=== PATIENT | male | born 1960 | race Caucasian/White ===

== ENCOUNTER → 2017-03-22 | Outpatient (CLI) | payer OTHER ==
[~2017-03-22] MED LIST: IBUP200C PO
[2017-03-22 10:56] LABS: PATH.CAST-FLAG NOT PRESENT; SPERM-FLAG NOT PRESENT; SRC-FLAG NOT PRESENT; XTAL-FLAG NOT PRESENT; YLC-FLAG NOT PRESENT
[2017-03-22 11:05] LABS: BLOOD UREA NITROGEN 18 mg/dL (7-18)
== END | disposition home or self-care (01) ==
LOC: STAR 09:58
PROVIDERS: ATTEND Urology
DX: Z01.818 Encounter for other preprocedural examination (principal); N20.1 Calculus of ureter; R79.1 Abnormal coagulation profile
CPT/HCPCS: 36415; 80048; 81001; 85025; 85610; 85730; 87077; 87086; 87186; 93005

== ENCOUNTER 2017-03-27 07:28 | Day surgery (SDC) | payer OTHER ==
[~2017-03-27] VITALS: Ht 175.3 cm; Wt 62.0 kg
[2017-03-27] MEDS ORDERED: LACTATED RINGERS 1,000 ML IV SCH (08:06)
[2017-03-27 08:07] VITALS: BP 139/88
[2017-03-27] MEDS ORDERED: FENTANYL PF 100 MCG/2ML ONE ×2 (08:57→12:27)
[2017-03-27] MEDS ORDERED: ROCURONIUM 10 MG/ML ONE (09:50)
[2017-03-27] MEDS ORDERED: CEFAZOLIN 1,000 MG ONE (09:50)
[2017-03-27] MEDS ORDERED: PROPOFOL 10 MG/ML, 20ML ONE (09:50)
[2017-03-27] MEDS ORDERED: DEXAMETHASONE 4 MG/ML, 1ML ONE (09:50)
[2017-03-27] MEDS ORDERED: ONDANSETRON 2MG/ML, 2ML ONE (09:50)
[2017-03-27] MEDS ORDERED: hydrALAzine 20 MG/ML, 1ML IV PRN (10:30)
[2017-03-27] MEDS ORDERED: MEPERIDINE/PF 25MG/0.5ML IVPush PRN (10:30)
[2017-03-27] MEDS ORDERED: HYDROmorphone 1 MG/ML, 1ML IV PRN (10:30)
[2017-03-27] MEDS ORDERED: ALBUTEROL SULFATE 2.5 MG/3 ML NPPB PRN (10:30)
[2017-03-27] MEDS ORDERED: OXYcodone 5 MG/5 ML ORAL.SOL UDC PO PRN (10:30)
[2017-03-27] MEDS ORDERED: METOPROLOL 1 MG/ML, 5ML IV PRN (10:30)
[2017-03-27] MEDS ORDERED: ACETAMINOPHEN 325 MG TABLET PO PRN (10:30)
[2017-03-27] MEDS ORDERED: OXYcodone 5 MG/5 ML ORAL.SOL UDC ONE (12:27)
[2017-03-27] MEDS ORDERED: IBUPROFEN 200 MG TABLET PO SCH (12:30)
[2017-03-27] MEDS: FENTANYL PF 100 MCG/2ML IV PRN ×2 (12:31→12:54)
== END 2017-03-27 14:20 ==
LOC: OUT 07:28
PROVIDERS: ATTEND Urology
DX: N13.2 Hydronephrosis with renal and ureteral calculous obstruction (principal); F17.200 Nicotine dependence, unspecified, uncomplicated; Z87.440 Personal history of urinary (tract) infections
CPT/HCPCS: 50590; 52356; C1758; C1769; C2617; J0690; J1100; J2405; J2704; J3010; J7120